=== PATIENT | male | born 1940 | race Caucasian/White ===

== ENCOUNTER 2021-12-07 15:08 | Inpatient (IN) | payer MEDICARE ==
[~2021-12-07] VITALS: Ht 170.2 cm; Wt 79.5 kg
[2021-12-07 16:09] LABS: BASOPHILS # (AUTO) 0.1 X10'3 (0-0.2); EOSINOPHILS # (AUTO) 0.1 X10'3 (0-0.9); HEMATOCRIT 41.7 % (42.0-52.0); HEMOGLOBIN 13.7 g/dl (14.0-17.9); LYMPHOCYTES # (AUTO) 1.4 X10'3 (1.1-4.8); LYMPHOCYTES % (AUTO) 23.3 % (21-51); MEAN CORPUSCULAR HEMOGLOBIN 30.4 PG (27.0-31.0); MEAN CORPUSCULAR HGB CONC 32.8 g/dL (33.0-36.5); MEAN CORPUSCULAR VOLUME 92.5 FL (78-98); MEAN PLATELET VOLUME 9.9 FL (7.4-10.4); MONOCYTES # (AUTO) 0.6 X10'3 (0-0.9); MONOCYTES % (AUTO) 10.4 % (2-12); NEUTROPHILS # (AUTO) 3.7 X10'3 (1.8-7.7); NEUTROPHILS % (AUTO) 64.3 % (42-75); PLATELET COUNT 180 X10'3 (140-440); RED BLOOD COUNT 4.51 X10'6 (4.70-6.10); RED CELL DISTRIBUTION WIDTH 14.4 % (11.5-14.5); WHITE BLOOD COUNT 5.8 X10'3 (4.5-11.0)
[2021-12-07 16:21] LABS: ALANINE AMINOTRANSFERASE 79 U/L (12-78); ALBUMIN 4.1 G/DL (3.4-5.0); ALKALINE PHOSPHATASE 91 IU/L (46-116); ANION GAP 15 (8-16); ASPARTATE AMINO TRANSFERASE 41 U/L (10-37); BILIRUBIN,TOTAL 0.5 MG/DL (0.1-1.0); BLOOD UREA NITROGEN 20 MG/DL (7-18); BUN/CREATININE RATIO 13.1 (5.4-32.0); CALCIUM 9.6 MG/DL (8.5-10.1); CHLORIDE 107 MMOL/L (99-107); CREATININE 1.53 MG/DL (0.60-1.10); GLUCOSE 88 MG/DL (70-104); POTASSIUM 4.2 MMOL/L (3.5-5.1); SODIUM 146 MMOL/L (135-145); TOTAL CARBON DIOXIDE 24.2 MMOL/L (24-32); TOTAL PROTEIN 8.2 G/DL (6.4-8.2); eGFR 44 ML/MIN
[2021-12-07] MEDS ORDERED: acetaminophen 325mg tablet PO ONE (17:00)
[2021-12-07] MEDS ORDERED: ASPI-611 PO (17:49)
[2021-12-07] MEDS ORDERED: METO25TA6 PO (17:49)
[2021-12-07] MEDS ORDERED: LEVO75TA7 PO (17:49)
[2021-12-07] MEDS ORDERED: MULT-1085 PO (17:49)
[2021-12-07] MEDS ORDERED: AMIT25TA10 PO (17:49)
[2021-12-07] MEDS ORDERED: EZET1TAB23 PO (17:49)
[2021-12-07] MEDS ORDERED: FLO0.4C PO (17:49)
[2021-12-07] MEDS ORDERED: CHOL20002 PO (17:49)
[2021-12-07] MEDS ORDERED: TOPI25TA15 PO (17:49)
[2021-12-07] MEDS ORDERED: NOTE (17:51)
[2021-12-07] MEDS ORDERED: magnesium hydroxide 30ml (MOM) UD suspension PO PRN (18:00)
[2021-12-07] MEDS ORDERED: ondansetron/PF 4mg/2ml inj IV PRN (18:00)
[2021-12-07] MEDS ORDERED: heparin 10,000 units/1 ML INJ IV PRN (18:00)
[2021-12-07] MEDS ORDERED: HYDROcodone/acetaminophen 5mg/325mg tablet PO PRN (18:00)
[2021-12-07] MEDS ORDERED: heparin 25,000 UNIT/250ml bag 250 ML IV SCH (18:00)
[2021-12-07] MEDS ORDERED: nitroGLYCERIN 0.4mg SUBLingual tab SL PRN (18:00)
[2021-12-07] MEDS ORDERED: acetaminophen 325mg tablet PO PRN ×2 (18:00)
[2021-12-07] MEDS ORDERED: morphine 2 MG/ML inj. syringe IV PRN ×2 (18:00)
[2021-12-07] MEDS ORDERED: mag hydrox/Alum hydrox/simeth 30ml oral suspension PO PRN (18:00)
[2021-12-07] MEDS ORDERED: heparin 10,000 units/1 ML INJ IV ONE (18:00)
[2021-12-07] MEDS ORDERED: SIMV10TA98 PO (18:28)
[2021-12-07] MEDS ORDERED: EZET10TA6 PO (18:28)
--- NOTE | 2021-12-07 18:49 | NUR ---
Note maura in EDM - 12/07/21 at 1850 by TIN Introduced self to pt. Pt declines blood work and urine. Pt states there is nothing wrong with her. Pt states she just wants her methadone, something to eat and drink.
--- NOTE | 2021-12-07 18:52 | NUR ---
Introduced self to pt. Pt pink, alert, no acute/resp distress. PIV site c/d/i s complication or adverse rxn. Heparin infusing well s complication, adverse reaction, or infiltration.
[2021-12-07 19:06] LABS: APTT 27 SECONDS (22-32)
--- NOTE | 2021-12-07 19:41 | NUR ---
Pt pink, alert, no acute/resp distress. PIV site c/d/i s complication or adverse reaction.
[2021-12-07] MEDS: furosemide 40mg/4ml inj IV SCH (20:01)
[2021-12-07] MEDS: docusate sod 100mg capsule PO SCH (20:15)
[2021-12-07 20:55] VITALS: BP 161/70
[2021-12-07 22:00] VITALS: BP 145/62
[2021-12-08 06:00] VITALS: BP 151/66
[2021-12-08 06:36] LABS: ALBUMIN 3.8 G/DL (3.4-5.0); ANION GAP 15 (8-16); BLOOD UREA NITROGEN 23 MG/DL (7-18); BUN/CREATININE RATIO 14.2 (5.4-32.0); CALCIUM 9.6 MG/DL (8.5-10.1); CHLORIDE 104 MMOL/L (99-107); CREATININE 1.62 MG/DL (0.60-1.10); GLUCOSE 91 MG/DL (70-104); POTASSIUM 3.9 MMOL/L (3.5-5.1); SODIUM 144 MMOL/L (135-145); TOTAL CARBON DIOXIDE 25.2 MMOL/L (24-32); eGFR 41 ML/MIN
[2021-12-08 06:37] LABS: BASOPHILS # (AUTO) 0.1 X10'3 (0-0.2); EOSINOPHILS # (AUTO) 0.1 X10'3 (0-0.9); EOSINOPHILS % (AUTO) 2.3 % (0-6); HEMATOCRIT 41.2 % (42.0-52.0); HEMOGLOBIN 13.8 g/dl (14.0-17.9); LYMPHOCYTES # (AUTO) 1.4 X10'3 (1.1-4.8); LYMPHOCYTES % (AUTO) 25.5 % (21-51); MEAN CORPUSCULAR HGB CONC 33.6 g/dL (33.0-36.5); MEAN CORPUSCULAR VOLUME 92.2 FL (78-98); MEAN PLATELET VOLUME 10.6 FL (7.4-10.4); MONOCYTES # (AUTO) 0.8 X10'3 (0-0.9); MONOCYTES % (AUTO) 13.3 % (2-12); NEUTROPHILS # (AUTO) 3.3 X10'3 (1.8-7.7); NEUTROPHILS % (AUTO) 57.9 % (42-75); PLATELET COUNT 180 X10'3 (140-440); RED BLOOD COUNT 4.46 X10'6 (4.70-6.10); RED CELL DISTRIBUTION WIDTH 14.2 % (11.5-14.5); WHITE BLOOD COUNT 5.6 X10'3 (4.5-11.0)
[2021-12-08] MEDS: docusate sod 100mg capsule PO SCH ×2 (07:47→19:06)
[2021-12-08] MEDS: aspirin 81mg, enteric-coated 1 TAB TABLET.DR PO SCH (07:47)
[2021-12-08] MEDS: furosemide 40mg/4ml inj IV SCH ×2 (07:48→19:06)
[2021-12-08 11:00] VITALS: BP 141/69
[2021-12-08 15:00] VITALS: BP 142/66
[2021-12-08] MEDS ORDERED: aminophylline 250mg/10ml inj. IV PRN (15:25)
[2021-12-08] MEDS ORDERED: regadenoson 0.4mg/5ml syringe IV PRN (15:25)
[2021-12-08] MEDS ORDERED: nitroGLYCERIN 0.4mg SUBLingual tab SL PRN (15:25)
[2021-12-08] MEDS ORDERED: metoprolol tartrate 1mg/ml inj IV PRN (15:25)
[2021-12-08 18:30] VITALS: BP 139/62
[2021-12-08] MEDS: topiramate 25mg tablet PO SCH (19:07)
[2021-12-08] MEDS ORDERED: enoxaparin 40mg/0.4ml syringe SUBCUT SCH (20:00)
[2021-12-08] MEDS: amitriptyline 25mg tablet PO SCH (21:15)
[2021-12-08 22:00] VITALS: BP 118/62
[2021-12-09] VITALS (16 sets, daily range): BP systolic 89–179; BP diastolic 41–63
[2021-12-09 06:10] LABS: EOSINOPHILS # (AUTO) 0.1 X10'3 (0-0.9); EOSINOPHILS % (AUTO) 2.6 % (0-6); HEMATOCRIT 41.6 % (42.0-52.0); HEMOGLOBIN 13.9 g/dl (14.0-17.9); LYMPHOCYTES # (AUTO) 1.3 X10'3 (1.1-4.8); LYMPHOCYTES % (AUTO) 29.1 % (21-51); MEAN CORPUSCULAR HEMOGLOBIN 30.6 PG (27.0-31.0); MEAN CORPUSCULAR HGB CONC 33.5 g/dL (33.0-36.5); MEAN CORPUSCULAR VOLUME 91.3 FL (78-98); MONOCYTES # (AUTO) 0.6 X10'3 (0-0.9); MONOCYTES % (AUTO) 14.1 % (2-12); NEUTROPHILS # (AUTO) 2.4 X10'3 (1.8-7.7); NEUTROPHILS % (AUTO) 53.2 % (42-75); PLATELET COUNT 185 X10'3 (140-440); RED BLOOD COUNT 4.56 X10'6 (4.70-6.10); RED CELL DISTRIBUTION WIDTH 14.3 % (11.5-14.5); WHITE BLOOD COUNT 4.6 X10'3 (4.5-11.0)
[2021-12-09 06:19] LABS: ALBUMIN 3.5 G/DL (3.4-5.0); ANION GAP 14 (8-16); BLOOD UREA NITROGEN 30 MG/DL (7-18); BUN/CREATININE RATIO 17.3 (5.4-32.0); CALCIUM 9.3 MG/DL (8.5-10.1); CHLORIDE 104 MMOL/L (99-107); CREATININE 1.73 MG/DL (0.60-1.10); GLUCOSE 91 MG/DL (70-104); POTASSIUM 3.5 MMOL/L (3.5-5.1); SODIUM 142 MMOL/L (135-145); TOTAL CARBON DIOXIDE 24.2 MMOL/L (24-32); eGFR 38 ML/MIN
--- NOTE | 2021-12-09 06:30 | NUR ---
Patient in room PCU 3012. I have received report from Issa and had the opportunity to ask questions and assume patient care.
--- NOTE | 2021-12-09 06:45 | NUR ---
Problems reprioritized. Patient report given, questions answered & plan of care reviewed with Davida RAMIREZ.
[2021-12-09] MEDS ORDERED: atorvastatin 10mg tablet PO SCH (08:00)
[2021-12-09] MEDS ORDERED: aspirin 81mg, enteric-coated 1 TAB TABLET.DR PO SCH (08:00)
[2021-12-09] MEDS: ezetimibe 10mg tablet PO SCH ×2 (08:28→08:32)
[2021-12-09] MEDS: aspirin 81mg, enteric-coated 1 TAB TABLET.DR PO SCH ×2 (08:28→08:31)
[2021-12-09] MEDS: cholecalciferol (vitamin D3) 1,000 unit (25mcg) tablet PO SCH ×2 (08:28→08:31)
[2021-12-09] MEDS: metoprolol tartrate 25mg tablet PO SCH ×2 (08:29→08:31)
[2021-12-09] MEDS: docusate sod 100mg capsule PO SCH ×2 (08:31→20:08)
[2021-12-09] MEDS: tamsulosin 0.4mg capsule PO SCH (08:32)
[2021-12-09] MEDS: levoTHYROXINE 75mcg tablet PO SCH (08:32)
[2021-12-09] MEDS: multivitamins, therapeutics tablet PO SCH (08:32)
[2021-12-09] MEDS: furosemide 40mg/4ml inj IV SCH (08:32)
[2021-12-09] MEDS: topiramate 25mg tablet PO SCH ×2 (08:32→20:08)
[2021-12-09] MEDS ORDERED: aminophylline 500mg/20ml vial IV PRN (10:07)
[2021-12-09] MEDS ORDERED: diphenhydrAMINE 25mg capsule PO ONE (12:30)
[2021-12-09] MEDS: normal saline 1000ml 1,000 ML IV SCH ×2 (12:45→22:56)
[2021-12-09] MEDS: atorvastatin 10mg tablet PO SCH (13:44)
[2021-12-09] MEDS ORDERED: midazolam 1 mg/ML 2ml injection ONE (14:29)
[2021-12-09] MEDS ORDERED: fentaNYL/PF 50MCG/1 ML 2ML syringe ONE (14:29)
[2021-12-09] MEDS ORDERED: LIDOcaine 1% (10mg/ml)w/preservative inj. 20ml MDV ONE (14:29)
[2021-12-09] MEDS ORDERED: iohexol 350 MG/ML 50ML vial IV ONE ×2 (14:29→15:16)
[2021-12-09] MEDS ORDERED: iohexol 350MG/ML 100ml bottle IV ONE ×2 (14:29→15:25)
--- NOTE | 2021-12-09 15:00 | NUR ---
Pt being admitted to ICU per doctors orders post slab stripper procedure. Report given to Roxanne RAMIREZ in ICU. Patients belongings packed up, including hearing aids and wallet, helped carry them up to his ICU room. Addendum: 12/09/21 at 1657 by Roxanne Cristobal RN correction: Report given to Lisa RAMIREZ not Roxanne RAMIREZ.
[2021-12-09] MEDS ORDERED: heparin 1,000unit/ml 10ml vial 10 ML ONE (15:24)
[2021-12-09] MEDS ORDERED: heparin 25,000 UNIT/250ml bag 250 ML IV ONE (15:25)
[2021-12-09] MEDS ORDERED: tirofiban 5mg in NS 100mL 100 ML IV ONE (15:39)
[2021-12-09 15:49] LABS: ISTAT HGB ART 12.9 g/dl (14.0-18.0); ISTAT Hct ART 38 %PCV (42-52); ISTAT O2 SATURATION ARTERIAL 97 % (95-98); ISTAT SOURCE ART
--- NOTE | 2021-12-09 16:45 | NUR ---
Pt. transferred to room 2044 from County Program Technician. Pt. is awake and oriented, R sheath in place with no hematoma noted, BP 119/54, SPO2 95% on room air, RR 17, HR 75 sinus rhythm. Heparin, Aggrastat, and NS infusing. Received report from REGISTERED PHYSICAL THERAPIST as well as County Program Technician RN. Patient's at bedside.
--- NOTE | 2021-12-09 16:57 | NUR ---
Pt's , Carrie Magaña to see pt. took home all belongings except pt's glasses; this includes his wallet and two hearing aids. Addendum: 12/09/21 at 1752 by Roxanne Cristobal RN Carrie also took home pt's watch
--- NOTE | 2021-12-09 18:37 | NUR ---
Report given to ASHLEY Swift
[2021-12-09] MEDS ORDERED: heparin 10,000 units/1 ML INJ IV ONE (18:40)
[2021-12-09] MEDS ORDERED: heparin 25,000 UNIT/250ml bag 250 ML IV SCH (18:40)
[2021-12-09] MEDS ORDERED: NS IV SCH (18:50)
[2021-12-09] MEDS ORDERED: TIROFIBAN IV SCH (18:50)
[2021-12-09] MEDS ORDERED: proCHLORperazine 10 MG/2 ml inj IV PRN (18:55)
[2021-12-09] MEDS ORDERED: cyclobenzaprine 10mg tablet PO PRN (18:55)
[2021-12-09] MEDS ORDERED: morphine 4 MG/ML inj SYRINge IV PRN (18:55)
[2021-12-09] MEDS ORDERED: HYDROcodone/acetaminophen 10/325mg tab PO PRN (18:55)
[2021-12-09] MEDS ORDERED: OXAZEpam 15mg capsule PO PRN (18:55)
[2021-12-09] MEDS: amitriptyline 25mg tablet PO SCH (20:08)
[2021-12-09 20:17] LABS: BASOPHILS # (AUTO) 0.1 X10'3 (0-0.2); BASOPHILS % (AUTO) 0.8 % (0-1); EOSINOPHILS # (AUTO) 0.1 X10'3 (0-0.9); EOSINOPHILS % (AUTO) 1.8 % (0-6); HEMATOCRIT 40.8 % (42.0-52.0); HEMOGLOBIN 13.6 g/dl (14.0-17.9); LYMPHOCYTES # (AUTO) 1.8 X10'3 (1.1-4.8); LYMPHOCYTES % (AUTO) 29.7 % (21-51); MEAN CORPUSCULAR HEMOGLOBIN 30.7 PG (27.0-31.0); MEAN CORPUSCULAR HGB CONC 33.4 g/dL (33.0-36.5); MEAN CORPUSCULAR VOLUME 91.8 FL (78-98); MEAN PLATELET VOLUME 9.5 FL (7.4-10.4); MONOCYTES # (AUTO) 0.8 X10'3 (0-0.9); MONOCYTES % (AUTO) 13.9 % (2-12); NEUTROPHILS # (AUTO) 3.2 X10'3 (1.8-7.7); NEUTROPHILS % (AUTO) 53.8 % (42-75); PLATELET COUNT 195 X10'3 (140-440); RED BLOOD COUNT 4.45 X10'6 (4.70-6.10); RED CELL DISTRIBUTION WIDTH 14.3 % (11.5-14.5)
[2021-12-10] VITALS (20 sets, daily range): BP systolic 116–160; BP diastolic 47–64
[2021-12-10] MEDS: HYDROcodone/acetaminophen 10/325mg tab PO PRN ×2 (01:16→08:32)
[2021-12-10 03:14] LABS: BASOPHILS # (AUTO) 0.1 X10'3 (0-0.2); EOSINOPHILS # (AUTO) 0.1 X10'3 (0-0.9); EOSINOPHILS % (AUTO) 2.2 % (0-6); HEMATOCRIT 38.6 % (42.0-52.0); HEMOGLOBIN 12.7 g/dl (14.0-17.9); LYMPHOCYTES # (AUTO) 1.2 X10'3 (1.1-4.8); MEAN CORPUSCULAR HEMOGLOBIN 30.1 PG (27.0-31.0); MEAN CORPUSCULAR HGB CONC 32.9 g/dL (33.0-36.5); MEAN CORPUSCULAR VOLUME 91.6 FL (78-98); MEAN PLATELET VOLUME 9.7 FL (7.4-10.4); MONOCYTES # (AUTO) 0.8 X10'3 (0-0.9); MONOCYTES % (AUTO) 13.6 % (2-12); NEUTROPHILS # (AUTO) 3.4 X10'3 (1.8-7.7); NEUTROPHILS % (AUTO) 61.2 % (42-75); PLATELET COUNT 173 X10'3 (140-440); RED BLOOD COUNT 4.21 X10'6 (4.70-6.10); RED CELL DISTRIBUTION WIDTH 13.9 % (11.5-14.5); WHITE BLOOD COUNT 5.6 X10'3 (4.5-11.0)
[2021-12-10 03:21] LABS: ALBUMIN 3.2 G/DL (3.4-5.0); ANION GAP 13 (8-16); BLOOD UREA NITROGEN 33 MG/DL (7-18); BUN/CREATININE RATIO 19.4 (5.4-32.0); CALCIUM 8.5 MG/DL (8.5-10.1); CHLORIDE 103 MMOL/L (99-107); GLUCOSE 103 MG/DL (70-104); POTASSIUM 3.4 MMOL/L (3.5-5.1); SODIUM 139 MMOL/L (135-145); eGFR 39 ML/MIN
[2021-12-10] MEDS: heparin 10,000 units/1 ML INJ IV PRN ×2 (03:45→17:11)
[2021-12-10 06:31] LABS: ISTAT Hct MIX 39 %PCV (42-52); ISTAT O2 SATURATION MIX VENOUS 64 % (60-80); ISTAT SOURCE BLNK
--- NOTE | 2021-12-10 07:00 | NUR ---
Problems reprioritized. Patient report given, questions answered & plan of care reviewed with ASHLEY Blas
--- NOTE | 2021-12-10 07:02 | NUR ---
Patient in room ICU 2044. I have received report from ASHLEY BOLES, and had the opportunity to ask questions and assume patient care. Addendum: 12/10/21 at 0928 by Roopa Álvarez RN Patient in room ICU 2044. I have received report from ASHLEY LINDSEY, and had the opportunity to ask questions and assume patient care.
[2021-12-10] MEDS ORDERED: K and/or MAG REPLACEMENT MC SCH (08:00)
[2021-12-10] MEDS: levoTHYROXINE 75mcg tablet PO SCH (08:16)
[2021-12-10] MEDS: docusate sod 100mg capsule PO SCH (08:28)
[2021-12-10] MEDS: multivitamins, therapeutics tablet PO SCH (08:29)
[2021-12-10] MEDS: tamsulosin 0.4mg capsule PO SCH (08:29)
[2021-12-10] MEDS: topiramate 25mg tablet PO SCH (08:29)
[2021-12-10] MEDS: atorvastatin 10mg tablet PO SCH (08:30)
[2021-12-10] MEDS ORDERED: tirofiban 12.5mg in NS 250mL 250 ML IV SCH (08:45)
--- NOTE | 2021-12-10 10:53 | NUR ---
0945 aPTT - 58. THERAPEUTIC RANGE, NO HEPARIN BOLUS GIVEN OR CHANGE IN RATE.
[2021-12-10] MEDS ORDERED: potassium Cl 20 mEq SR tablet PO PRN (12:45)
--- NOTE | 2021-12-10 13:04 | NUR ---
PAGE SENT PAGER ID: [phone] MESSAGE: 2044, DR. BRYNN RODRIGUEZ IS TRANSFERRING PT TO [facility] AND NEEDS A HOSPITALIST TO WRITE THE DISCHARGE SUMMARY. THANK YOU, RAMANA [phone]
--- NOTE | 2021-12-10 13:12 | NUR ---
PAGE SENT 2044, AYANA RIGGINS, PT GOING TO [facility] FOR AORTIC VALVE REPLACEMENT AND STENT. THANK YOU. RAMANA [phone]
[2021-12-10] MEDS: potassium Cl 20 mEq SR tablet PO PRN ×2 (13:18→17:03)
--- NOTE | 2021-12-10 15:54 | NUR ---
Called Dr. Santana to discuss pt's sheath. Pt currently on heparin gtt plus aggrastat. Per Dr. Santana, do not pull the sheath on these medications, and these medications can not be stopped. Dr. Burk on unit. Per Dr. Burk, leave sheath in. Per case finisher, SIMBA wayne with leaving sheath in.
[2021-12-10] MEDS: normal saline 1000ml 1,000 ML IV SCH (17:46)
[2021-12-10] MEDS ORDERED: niCARDipine-NS 40mg/200ml IVPB 200 ML IV PRN (18:05)
--- NOTE | 2021-12-10 19:21 | NUR ---
PT STABLE FOR TRANSFER PER MD. PT TRANSFERRED TO [facility]. FAMILY NOTIFIED. HAND OFF GIVEN TO ASHLEY MCCARTNEY. HAND OFF GIVEN TO REACH FLIGHT NURSE ASHLEY NICOLE. DISK OF MEDICAL PROCEDURES SENT WITH PT. APPROPRIATE PAPERWORK SENT WITH PT. PT WAS SENT ON CARDENE, HEPARIN AND AGGRASTAT DRIPS. 20 GAUGE PIV PLACED IN RIGHT AC. R GROIN SHEATH IN PLACE AT DISCHARGE. PT TRANSFERRED TO [facility], ICU, BLUE T[address] 7, ROOM 7667 BED 9. PT TRANSFERRED BY AMBULANCE AND AIRPLANE.
== END 2021-12-10 19:20 | disposition short-term general hospital (02) | DRG 280 ==
LOC: ER 15:09 → ED HOLD 18:03 → PCU 3S 20:55 → ICU 2S 12-09 15:44
PROVIDERS: ADMIT Internal Medicine; ATTEND Internal Medicine
PROC: 4A023N8 Measurement of Cardiac Sampling and Pressure, Bilateral, Percutaneous Approach (ICD-10-PCS; principal; 2021-12-09)
PROC: B2111ZZ Fluoroscopy of Multiple Coronary Arteries using Low Osmolar Contrast (ICD-10-PCS; 2021-12-09)
PROC: B2151ZZ Fluoroscopy of Left Heart using Low Osmolar Contrast (ICD-10-PCS; 2021-12-09)
PROC: B3101ZZ Fluoroscopy of Thoracic Aorta using Low Osmolar Contrast (ICD-10-PCS; 2021-12-09)
PROC: B2131ZZ Fluoroscopy of Multiple Coronary Artery Bypass Grafts using Low Osmolar Contrast (ICD-10-PCS; 2021-12-09)
PROC: B2181ZZ Fluoroscopy of Left Internal Mammary Bypass Graft using Low Osmolar Contrast (ICD-10-PCS; 2021-12-09)
PROC: B41F1ZZ Fluoroscopy of Right Lower Extremity Arteries using Low Osmolar Contrast (ICD-10-PCS; 2021-12-09)
DX: I21.4 Non-ST elevation (NSTEMI) myocardial infarction (principal); I50.21 Acute systolic (congestive) heart failure; N17.9 Acute kidney failure, unspecified; I13.0 Hypertensive heart and chronic kidney disease with heart failure and stage 1 through stage 4 chronic kidney disease, or unspecified chronic kidney disease; I25.10 Atherosclerotic heart disease of native coronary artery without angina pectoris; N40.0 Benign prostatic hyperplasia without lower urinary tract symptoms; N18.30 Chronic kidney disease, stage 3 unspecified; E03.9 Hypothyroidism, unspecified; E78.5 Hyperlipidemia, unspecified; E86.0 Dehydration; I25.5 Ischemic cardiomyopathy; I08.0 Rheumatic disorders of both mitral and aortic valves; I50.9 Heart failure, unspecified; F41.9 Anxiety disorder, unspecified; Z20.822 Contact with and (suspected) exposure to COVID-19; F32.A Depression, unspecified; I65.23 Occlusion and stenosis of bilateral carotid arteries; Z95.1 Presence of aortocoronary bypass graft; Z95.3 Presence of xenogenic heart valve; Z79.899 Other long term (current) drug therapy; Z87.891 Personal history of nicotine dependence; Z79.82 Long term (current) use of aspirin; Z82.49 Family history of ischemic heart disease and other diseases of the circulatory system
CPT/HCPCS: 36415; 71045; 78452; 80048; 80053; 82803; 83880; 84484; 85014; 85025; 85610; 85730; 86885; 86900; 86901; 87081; 87635; 93005; 93017; 93306; 93461; 99152; 99153; 99285; A4620; A6258; A9500; C1751; C1769; G0378; J1644; J1650; J1940; J2250; J3010; J3246; J3490; J7030; J7040; Q0163; Q9967

== ENCOUNTER 2022-10-15 07:13 | Outpatient (CLI) | payer BC, MEDICARE ==
[2022-10-15] VITALS (18 sets, daily range): BP systolic 97–140; BP diastolic 50–71
[~2022-10-15 07:13] MED LIST: AMIT25TA10 PO; ASPI-611 PO; CHOL20002 PO; EZET10TA6 PO; FLO0.4C PO; LEVO75TA7 PO; METO25TA6 PO; MULT-1085 PO; SIMV10TA98 PO; TOPI25TA15 PO
== END 2022-10-15 23:59 | disposition home or self-care (01) ==
LOC: CARD DIAG 07:13
PROVIDERS: ATTEND Internal Medicine Cardiovascular Disease
DX: R55 Syncope and collapse (principal)
CPT/HCPCS: 93660

== ENCOUNTER 2023-02-14 08:40 | Outpatient (CLI) | payer BC ==
[2023-02-14 09:11] LABS: BASOPHILS # (AUTO) 0.1 X10'3 (0-0.2); EOSINOPHILS # (AUTO) 0.1 X10'3 (0-0.9); EOSINOPHILS % (AUTO) 1.5 % (0-6); HEMATOCRIT 34.1 % (42.0-52.0); HEMOGLOBIN 11.3 g/dl (14.0-17.9); LYMPHOCYTES # (AUTO) 0.9 X10'3 (1.1-4.8); LYMPHOCYTES % (AUTO) 15.3 % (21-51); MEAN CORPUSCULAR HEMOGLOBIN 31.2 PG (27.0-31.0); MEAN CORPUSCULAR HGB CONC 33.1 g/dL (33.0-36.5); MEAN CORPUSCULAR VOLUME 94.3 FL (78-98); MEAN PLATELET VOLUME 9.2 FL (7.4-10.4); MONOCYTES % (AUTO) 16.5 % (2-12); NEUTROPHILS % (AUTO) 65.7 % (42-75); PLATELET COUNT 157 X10'3 (140-440); RED BLOOD COUNT 3.62 X10'6 (4.70-6.10); RED CELL DISTRIBUTION WIDTH 14.1 % (11.5-14.5)
[2023-02-14 09:23] LABS: APTT 26 SECONDS (22-32)
[2023-02-14 09:31] LABS: ALANINE AMINOTRANSFERASE 29 U/L (12-78); ALBUMIN 4.1 G/DL (3.4-5.0); ALBUMIN/GLOBULIN RATIO 1.4 (1.1-1.5); ALKALINE PHOSPHATASE 75 IU/L (46-116); ANION GAP 4 (8-16); ASPARTATE AMINO TRANSFERASE 21 U/L (10-37); BILIRUBIN,TOTAL 0.4 MG/DL (0.1-1.0); BLOOD UREA NITROGEN 41 MG/DL (7-18); BUN/CREATININE RATIO 22.9 (10.0-20.0); CHLORIDE 108 MMOL/L (99-107); CREATININE 1.79 MG/DL (0.60-1.10); GLUCOSE 59 MG/DL (70-104); POTASSIUM 4.7 MMOL/L (3.5-5.1); SODIUM 140 MMOL/L (135-145); TOTAL CARBON DIOXIDE 28.1 MMOL/L (24-32); TOTAL PROTEIN 7.1 G/DL (6.4-8.2); eGFR 37 ML/MIN
[2023-02-14] MEDS ORDERED: IODIXANOL 320 MG/ML INFUS..BTL 100ML IV ONE (09:34)
== END 2023-02-14 23:59 | disposition home or self-care (01) ==
LOC: RAD 08:40
PROVIDERS: ATTEND Internal Medicine Cardiovascular Disease
DX: I51.7 Cardiomegaly (principal); J98.11 Atelectasis; K57.30 Diverticulosis of large intestine without perforation or abscess without bleeding; N40.0 Benign prostatic hyperplasia without lower urinary tract symptoms; K40.20 Bilateral inguinal hernia, without obstruction or gangrene, not specified as recurrent; I70.0 Atherosclerosis of aorta; I35.0 Nonrheumatic aortic (valve) stenosis; R06.02 Shortness of breath; I65.29 Occlusion and stenosis of unspecified carotid artery; M47.815 Spondylosis without myelopathy or radiculopathy, thoracolumbar region; Z98.890 Other specified postprocedural states
CPT/HCPCS: 71275; 74174; 80053; 83880; 85025; 85610; 85730; J3490; Q9967